=== PATIENT | male | born 1990 | race African-American/Black ===

== ENCOUNTER → 2021-01-28 | Emergency (ER) | payer MEDICAID ==
[~2021-01-28] VITALS: Ht 180.3 cm; Wt 80.5 kg
[~2021-01-28] MED LIST: CEPH-585 PO; acetaminophen 325mg tablet PO ONE
[2021-01-28 18:15] VITALS: BP 127/77
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
--- NOTE | 2021-01-28 20:03 | NUR ---
[facility] [employer] CALLED, STATED AN [facility] OFFICER WILL NOT BE COMING TO MAKE A STATEMENT AND THEY REQUEST INFORMATION ON THE PT REGARDING HIS STATEMENTS TO US, HIS INJURIES, AND TREATMENTS. FAX NUMBER FOR [facility] [phone]
--- NOTE | 2021-01-28 20:36 | NUR ---
PT REFUSED CONSENT TO SEND ANY MEDICAL INFORMATION TO [facility] [employer] [facility]. THEY HAVE BEEN MADE AWARE OF PT REFUSAL.
== END | disposition home or self-care (01) ==
LOC: ER 17:54
DX: S71.131A Puncture wound without foreign body, right thigh, initial encounter (principal); Z72.89 Other problems related to lifestyle; Z79.899 Other long term (current) drug therapy; W34.00XA Accidental discharge from unspecified firearms or gun, initial encounter; Y93.89 Activity, other specified; Y92.89 Other specified places as the place of occurrence of the external cause; Y99.8 Other external cause status
CPT/HCPCS: 73551; 99283